=== PATIENT | male | born 1985 | race Caucasian/White ===

== ENCOUNTER 2020-06-03 09:00 | Emergency (ER) | payer MEDICAID ==
--- NOTE | 2020-06-03 10:08 | EDM.PDOC ---
ED HPI GENERAL MEDICAL PROBLEM - General Chief Complaint: Cardiovascular Problem Stated Complaint: IRREGULAR HEARTBEAT Time Seen by Provider: 06/03/20 09:57 Source of Information: Reports: Patient, Family, RN Notes Reviewed History Limitations: Reports: No Limitations - History of Present Illness INITIAL COMMENTS - FREE TEXT/NARRATIVE: 34-year-old gentleman presents emergency department a complaint of palpitations, he states that they started early this morning were quite intense they now settled down at this time he does admit to consuming a large amount of sweet. No shortness of breath no nausea vomiting no history of heart troubles, is having problems with his dentition dental pain Pain Score (Numeric/FACES): 3 - Related Data Allergies Allergy/AdvReac Type Severity Reaction Status Date / Time No Known Allergies Allergy Verified 06/03/20 09:37 Home Meds: Home Meds Amoxicillin 500 mg PO TID #21 tablet 06/03/20 [Rx] Past Medical History HEENT History: Reports: Other (See Below) Other HEENT History: dental problems Musculoskeletal History: Reports: Fracture, Other (See Below) Other Musculoskeletal History: shoulder injuries Psychiatric History: Reports: ADHD Hematologic History: Reports: None Immunologic History: Reports: None Oncologic (Cancer) History: Reports: None Dermatologic History: Reports: None - Infectious Disease History Infectious Disease History: Reports: None - Past Surgical History HEENT Surgical History: Reports: Oral Surgery Male Surgical History: Reports: None Musculoskeletal Surgical History: Reports: Other (See Below) Other Musculoskeletal Surgeries/Procedures:: left ankle surg Social & Family History - Tobacco Use Tobacco Use Status *Q: Current Every Day Tobacco User Years of Tobacco use: 20 Packs/Tins Daily: 0.2 - Caffeine Use Caffeine Use: Reports: Tea - Recreational Drug Use Recreational Drug Use: Yes Recreational Drug Type: Reports: Methamphetamine Other Recreational Drug Type: 2.5 years ago ED ROS GENERAL - Review of Systems Review Of Systems: See Below Constitutional: Reports: No Symptoms HEENT: Reports: Dental Pain Respiratory: Reports: No Symptoms Cardiovascular: Reports: Palpitations GI/Abdominal: Reports: No Symptoms ED EXAM, GENERAL - Physical Exam Exam: See Below Exam Limited By: No Limitations General Appearance: Alert, WD/WN, No Apparent Distress Throat/Mouth: Normal Lips, Normal Gums, Normal Oropharynx, Normal Voice, No Airway Compromise, Other (Dentition is poor multiple caries). No: Normal Teeth Respiratory/Chest: No Respiratory Distress, Lungs Clear, Normal Breath Sounds, No Accessory Muscle Use, Chest Non-Tender Cardiovascular: Regular Rate, Rhythm, No Murmur Course - Vital Signs Last Recorded V/S: Last Vital Signs Temp 97.5 F 06/03/20 09:24 Pulse 69 06/03/20 11:05 Resp 14 06/03/20 11:05 BP 130/80 06/03/20 11:05 Pulse Ox 98 06/03/20 11:05 - Orders/Labs/Meds Orders: Active Orders 24 hr Category Date Time Status Cardiac Monitoring [RC] .As Directed Care 06/03/20 10:05 Active EKG Documentation Completion [RC] ASDIRECTED Care 06/03/20 10:05 Active EKG 12 Lead [EK] Stat Ther 06/03/20 10:05 Ordered Labs: Laboratory Tests 06/03/20 06/03/20 06/03/20 Range/Units 10:13 10:13 10:13 WBC 7.2 (4.5-11.0) K/uL RBC 5.16 (4.30-5.90) M/uL Hgb 14.4 (12.0-15.0) g/dL Hct 45.5 (40.0-54.0) % MCV 88 (80-98) fL MCH 28 (27-31) pg MCHC 32 (32-36) % Plt Count 272 (150-400) K/uL Neut % (Auto) 63 (36-66) % Lymph % (Auto) 23 L (24-44) % Crockett % (Auto) 11 H (2-6) % Eos % (Auto) 4 (2-4) % Baso % (Auto) 0 (0-1) % Sodium 142 (140-148) mmol/L Potassium 4.8 (3.6-5.2) mmol/L Chloride 105 (100-108) mmol/L Carbon Dioxide 28 (21-32) mmol/L Anion Gap 9.3 (5.0-14.0) mmol/L BUN 17 (7-18) mg/dL Creatinine 0.9 (0.8-1.3) mg/dL Est Cr Clr Drug Dosing 134.46 mL/min Estimated GFR (MDRD) > 60 (>60) Glucose 96 (74-106) mg/dL Calcium 9.1 (8.5-10.1) mg/dL Magnesium 2.3 (1.8-2.4) mg/dL Total Bilirubin 0.2 (0.2-1.0) mg/dL AST 14 L (15-37) U/L ALT 29 (12-78) U/L Alkaline Phosphatase 60 (46-116) U/L Troponin I < 0.017 (0.000-0.056) ng/mL Total Protein 7.0 (6.4-8.2) g/dL Albumin 3.6 (3.4-5.0) g/dL Globulin 3.4 (2.3-3.5) g/dL Albumin/Globulin Ratio 1.1 L (1.2-2.2) TSH, Ultra Sensitive 1.553 (0.358-3.740) uIU/mL Departure - Departure Time of Disposition: 11:17 Disposition: Home, Self-Care 01 Condition: Fair Clinical Impression: Bigeminy Prescriptions: Amoxicillin 500 mg PO TID #21 tablet Referrals: PCP,None [Primary Care Provider] - Forms: ED Department Discharge Additional Instructions: Recommend reducing your intake of sweet tea, your medications for your dental issues have been faxed to [facility], please followup with your primary care provider in 3-5 days if not better, please call return to the emergency department with worsening of symptoms. Sepsis Event Note (ED) - Evaluation Sepsis Screening Result: No Definite Risk - Focused Exam Vital Signs: Vital Signs Temp Pulse Resp BP Pulse Ox 06/03/20 11:05 69 14 130/80 98 06/03/20 10:27 80 18 134/92 H 99 06/03/20 09:24 97.5 F 45 L 18 153/77 H 99 - My Orders Last 24 Hours: My Active Orders 06/03/20 10:05 Cardiac Monitoring [RC] .As Directed EKG Documentation Completion [RC] ASDIRECTED EKG 12 Lead [EK] Stat - Assessment/Plan Last 24 Hours: My Active Orders 06/03/20 10:05 Cardiac Monitoring [RC] .As Directed EKG Documentation Completion [RC] ASDIRECTED EKG 12 Lead [EK] Stat Plan: Assessment Acuity = acute Site and laterality = bigeminy Etiology = probably related to caffeine intake Manifestations = none Location of injury = Home Lab values = CBC CMP troponin all within normal limits EKG demonstrates bigeminy Plan He is going try and reduce his caffeine intake follow-up primary care 3 to 5 days, prescription for amoxicillin for his dental issues faxed to [facility] 500 mg p.o. 3 times daily x7 days This note was dictated using [employer] voice recognition software please call with any questions on syntax or grammar.
== END 2020-06-03 11:25 | disposition home or self-care (01) ==
LOC: JP.ED 09:00
DX: R00.8 Other abnormalities of heart beat (principal); Z72.0 Tobacco use
CPT/HCPCS: 36415; 80053; 83735; 84443; 84484; 85025; 93005; 93010; 99283; 99285-25

== ENCOUNTER 2020-07-01 14:28 | Emergency (ER) | payer MEDICAID ==
--- NOTE | 2020-07-01 15:14 | EDM.PDOC ---
ED HPI GENERAL MEDICAL PROBLEM - General Chief Complaint: ENT Problem Stated Complaint: INFECTION LEFT SIDE OF FACE Time Seen by Provider: 07/01/20 14:48 Source of Information: Reports: Patient, Old Records History Limitations: Reports: No Limitations - History of Present Illness INITIAL COMMENTS - FREE TEXT/NARRATIVE: Itz is a 34-year-old male presenting to the ED with concerns of left facial swelling, tenderness, dental pain and swelling involving the sinuses. He was seen on 06/03/[address] Garcia who diagnosed him with a dental abscess and put him on amoxicillin. The patient completed his course of amoxicillin but was still having considerable swelling around tooth #22 so he took a safety pin that he sterilized with alcohol and jabbed it into the gum and up into his presumably sinus or face. He did express a large amount of purulent discharge for about a week and continued to press out the purulent material. He continues to have pain in the left maxillary sinus and teeth #22 through 24. He denies any fever or chills. He has had no significant discharge from the mouth for the last week but is concerned that he is developing a cellulitis in the face. There is significant advanced dental caries involving these teeth with exposed dentin and root in tooth 22 and 23 opening of portal to the maxillary sinus. The patient was offered a dental referral when he saw Dr. Garcia but initially declined. He is now interested in this referral. Left Face/Facial Pain Score (Numeric/FACES): 3 - Related Data Allergies Allergy/AdvReac Type Severity Reaction Status Date / Time No Known Allergies Allergy Verified 07/01/20 14:40 Home Meds: Home Meds Clindamycin HCl 300 mg PO TID #30 capsule 07/01/20 [Rx] Past Medical History HEENT History: Reports: Other (See Below) Other HEENT History: dental problems Cardiovascular History: Reports: Arrhythmia Respiratory History: Reports: None Gastrointestinal History: Reports: None Genitourinary History: Reports: None Musculoskeletal History: Reports: Fracture, Other (See Below) Other Musculoskeletal History: shoulder injuries Neurological History: Reports: None Psychiatric History: Reports: ADHD Endocrine/Metabolic History: Reports: None Hematologic History: Reports: None Immunologic History: Reports: None Oncologic (Cancer) History: Reports: None Dermatologic History: Reports: None - Infectious Disease History Infectious Disease History: Reports: None - Past Surgical History HEENT Surgical History: Reports: Oral Surgery Musculoskeletal Surgical History: Reports: Other (See Below) Other Musculoskeletal Surgeries/Procedures:: left ankle surg Social & Family History - Tobacco Use Tobacco Use Status *Q: Current Some Day Tobacco User Years of Tobacco use: 18 Packs/Tins Daily: 0.1 - Caffeine Use Caffeine Use: Reports: None - Recreational Drug Use Recreational Drug Use: No ED ROS ENT - Review of Systems Review Of Systems: See Below Constitutional: Reports: No Symptoms HEENT: Reports: Dental Pain, Sinus Problem, Other (Left facial swelling) Respiratory: Reports: No Symptoms Cardiovascular: Reports: No Symptoms Endocrine: Reports: No Symptoms GI/Abdominal: Reports: No Symptoms Musculoskeletal: Reports: No Symptoms Skin: Reports: No Symptoms ED EXAM, ENT - Physical Exam Exam: See Below Exam Limited By: No Limitations General Appearance: Alert, No Apparent Distress Eye Exam: Left Eye: EOMI, PERRL Nose: Nasal Swelling, Other (Tenderness with percussion over the left maxillary sinus.) Mouth/Throat: Normal Oropharynx, Dental Abcess (Teeth #22, 23, 24), Dental Tenderness, Gum Swelling, Other (Multiple teeth with advanced dental caries. 1 tooth with a failed root canal (tooth #22)) Head: Normocephalic, Facial Tenderness (Tenderness over the left maxillary sinus with percussion.). No: Facial Swelling Neck: Normal Inspection, Supple, Non-Tender, Full Range of Motion. No: Lymphadenopathy (R), Lymphadenopathy (L) Course - Vital Signs Last Recorded V/S: Last Vital Signs Temp 36.1 C 07/01/20 14:45 Pulse 108 H 07/01/20 14:45 Resp 16 07/01/20 14:45 BP 141/87 H 07/01/20 14:45 Pulse Ox 97 07/01/20 14:45 - Re-Assessments/Exams Free Text/Narrative Re-Assessment/Exam: 07/01/20 15:19 the patient has evidence for chronic sinusitis or ongoing infection in the left maxillary sinus likely due to ongoing issues with a chronic dental abscess involving teeth numbers 22 and 23 and possibly #24. There is evidence of advanced dental caries in these teeth. There is a failed root canal on tooth #22 with the 2 pegs being exposed and the canal visually being open. This is likely a constant nidus for recurrent infection. Patient did complete a 10-day course of amoxicillin but did not have full resolution of his symptoms prompting him to come back today. He does have significant tenderness to percussion over the left maxillary sinus consistent with a sinusitis so we will put him on clindamycin 300 mg 3 times daily for 10 days. I have also filled out a referral for him to see the [facility] dental clinic. Patient may take Tylenol or ibuprofen for pain control. At this time he suitable for discharge in satisfactory condition. Indications return to the ED were discussed and all questions were answered prior to discharge. Departure - Departure Time of Disposition: 15:09 Disposition: Home, Self-Care 01 Condition: Good Clinical Impression: Dental abscess, Chronic maxillary sinusitis - Discharge Information *PRESCRIPTION DRUG MONITORING PROGRAM REVIEWED*: Not Applicable *COPY OF PRESCRIPTION DRUG MONITORING REPORT IN PATIENT GUERA: Not Applicable Prescriptions: Clindamycin HCl 300 mg PO TID #30 capsule Instructions: Dental Abscess, Sinusitis, Adult, Nrum-ad-Nair Referrals: PCP,None [Primary Care Provider] - Care Plan Goals: I am starting you on clindamycin 1 capsule 3 times a day for 10 days. I have also put through a referral for you to see the dentist at the [facility] clinic. Make sure that you take yogurt with the clindamycin to prevent the occurrence of diarrhea. Take Aleve, ibuprofen, or Tylenol for pain and swelling. Sepsis Event Note (ED) - Evaluation Sepsis Screening Result: No Definite Risk - Focused Exam Vital Signs: Vital Signs Temp Pulse Resp BP Pulse Ox 07/01/20 14:45 36.1 C 108 H 16 141/87 H 97 07/01/20 14:36 36.1 C 108 H 16 141/87 H 97 - Problem List & Annotations (1) Chronic maxillary sinusitis SNOMED Code(s): 06542095 Code(s): J32.0 - CHRONIC MAXILLARY SINUSITIS Status: Acute Priority: Low Current Visit: Yes (2) Dental abscess SNOMED Code(s): 811363583 Code(s): K04.7 - PERIAPICAL ABSCESS WITHOUT SINUS Status: Acute Priority: Low Current Visit: Yes - Problem List Review Problem List Initiated/Reviewed/Updated: Yes
== END 2020-07-01 15:27 | disposition home or self-care (01) ==
LOC: JP.ED 14:28
DX: K04.7 Periapical abscess without sinus (principal); J32.0 Chronic maxillary sinusitis; K02.9 Dental caries, unspecified; Z72.0 Tobacco use
CPT/HCPCS: 99283